=== PATIENT | female | born 1990 | race Caucasian/White ===

== ENCOUNTER 2018-06-07 04:41 | Inpatient (IN) | payer OTHER, MEDICAID ==
[2018-06-07] MEDS ORDERED: Lactated Ringers 1000 ML Bag* 1,000 ML IV ONE ×2 (08:46→14:13)
[2018-06-07] MEDS ORDERED: Buffered Lidocaine 1% SYRIN* 1 ML/SYRINGE INTRADERM ONE (08:46)
[2018-06-07] MEDS ORDERED: Lactated Ringers 1000 ML Bag* 1,000 ML IV SCH ×3 (09:00→20:00)
--- NOTE | 2018-06-07 09:01 | HP ---
General Information - Reason for Visit IUP@40+4 admitted for SROM and early labor - General Information Maternal Age: 28 Grav: 1 Para: 0 SAB: 0 IEA: 0 Estimated Due Date: 06/03/18 Determined By: Early Ultrasound Gestational Age in Weeks/Days: 40+4 Maternal Blood Type and Rh: A Positive - Results this Serology/RPR Result: Non-Reactive Rubella Result: Immune HBsAg Result: Negative HIV Result: Negative GBS Culture Result: Negative Past Medical History Pertinent Past Medical History: Non-Contributory Past Medical History Comment: No current medical problems Pertinent Past Surgical History: None Pertinent Family History: See Records - FH of breast, stomach, and colon CA - Antepartal Records Antepartal Records: Reviewed, Uncomplicated Review of Systems Constitutional: Comfortable CV Complaint: No Respiratory: Shortness of Breath: No Gastrointestinal: No Nausea/Vomiting, Normal Bowel Movement Genitourinary: No Dysuria, No Bleeding Musculoskeletal: No Epigastric Pain, Contractions Neurological: No Headache, No Visual Changes Movement: Normal Exam Allergies/Adverse Reactions: Allergies No Known Allergies Allergy (Verified 06/07/18 05:13) Vital Signs 06/07/18 05:09 Temperature 98.3 F Pulse Rate 103 Respiratory 18 Rate Blood Pressure 115/80 (mmHg) O2 Sat by Pulse 98 Oximetry Lab Values - Entire Visit: Laboratory Tests 06/07/18 08:04 Vag Amniotic Fld Detect Positive - Measurements Height: 5 ft 5.75 in Weight: 182 lb 15.739 oz Weight in lbs: 182.030233 Body Mass Index (BMI): 29.7 Pre- Weight: 149 lb 14.629 oz Weight Gained This : 33.069 lbs and 0.006 ozs - Exam Breast: Breast Exam Deferred CVA: No CVA Tenderness Extremities: No Edema Heart: Normal Rhythm/Heart Sounds HEENT: No Significant Findings Lungs: Clear Bilaterally Rectal: Rectal Exam Deferred Reflexes: DTR 2+ Thyroid: No Thyromegaly - Abdominal Exam Abdomen Exam: Non-Tender, Fundal Height Consistent with Dates - Ultrasound/Biophysical Profile Ultrasound Status: Not Done Targeted Exam Findings See L&D Outpatient Visit Provider Note for Findings: N/A Estimated Weight: 7 Cervical Exam: 2cm - Cervical exam by LON ART Effacement: 50% Station: -2 Presenting Part: Vertex Membrane Status: SROM Amniotic Fluid Evaluation: Clear - C EFM Findings - External Monitor Findings Baseline Heart Rate: 120 External Monitor Findings: Accelerations Present, No Pattern of Variable or Late Decelerations, Variability Moderate, Baseline Stable Contractions: Regular, 45-90 Seconds - q1-5 minutes Assessment/Plan - Assessment IUP@40+4 Early labor SROM, clear fluid VE change from office, now 2/50%/-2 No evidence of acidemia - Plan Plan: Admit - Anticipate Vaginal Delivery - Date/Time of Admission Date of Admission: 06/07/18 Time of Admission: 09:00
--- NOTE | 2018-06-07 11:00 | PTEDU ---
Patient Name: ANDRAE CALVERT ANDRAE CALVERT selected video: BBOB: Bonding Through Massage to view on 06/07/2018 at 11:00:04 AM [facility] [id number]
--- NOTE | 2018-06-07 11:05 | PN ---
Progress Note - Progress Note Date of Service: 06/07/18 Note: SOAP S: Pt reports doing well. On the yoga ball. Feeling contractions every 4 minutes, breathing through contractions. Continues to feel fluid leaking. +FM. Denies needs at this time. O: IA: FHR 130@1000 Contractions: q4 mins, palpate moderate, good resting tone VE: 3.5/70%/-1, vtx, ant; bloody show, pink-tinged fluid A/P: Labor Pt coping well Making appropriate cervical change VE in 2-3 hr or prn Labor support - position changes; partner at bedside and supportive
[2018-06-07 13:31] LABS: ABS Basophils 0.1 10^3/ul (0-0.2); ABS Eosinophils 0 10^3/ul (0-0.6); ABS Lymphocytes 0.6 10^3/ul (1.0-4.8); ABS Monocytes 1.1 10^3/ul (0-0.8); ABS Neutrophils 14.9 10^3/ul (1.5-7.7); ABS Nucleated RBC 0 10^3/ul; Eosinophil % 0.1 %; Hematocrit 37 % (35-47); Hemoglobin 12.1 g/dl (12.0-16.0); Lymphocyte % 3.8 %; Mean Corpuscular HGB Conc 33 g/dl (31-36); Mean Corpuscular Hemoglobin 29 pg (27-31); Mean Corpuscular Volume 87 fL (80-97); Mean Platelet Volume 8.3 fL (7.4-10.4); Nucleated Red Blood Cells % 0; Platelet Count 229 10^3/ul (150-450); Red Blood Count 4.23 10^6/ul (4.00-5.40); Red Cell Distribution Width 15 % (10.5-15); White Blood Count 16.8 10^3/ul (3.5-10.8)
[2018-06-07] MEDS ORDERED: Phenylephrine IV* 40 MCG/ML 10 ML SYRINGE IV PUSH PRN (14:13)
[2018-06-07] MEDS ORDERED: Sodium Citrate/Citric Acid* 15 ML UDC PO PRN (14:13)
[2018-06-07] MEDS ORDERED: Famotidine TAB* 20 MG PO PRN (14:13)
[2018-06-07] MEDS ORDERED: OBEPIDURAL* 250 ML EPIDURAL ONE (14:16)
--- NOTE | 2018-06-07 14:23 | PN ---
Progress Note - Progress Note Date of Service: 06/07/18 Note: SOAP: S: Pt reports increasing pain with contractions. Feeling the need to push with contractions. Requesting cervical exam and epidural. +FM. O: VE: 5/80/-1, blood tinged fluid Contractions: q4-6, palpate strong, good resting tone IA: FHR 130s A/P: Making cervical change Epidural now. Anesthesia aware. at bedside, supportive. Anticipate progression to
[2018-06-07] MEDS ORDERED: OBEPIDURAL* 250 ML EPIDURAL SCH (15:00)
--- NOTE | 2018-06-07 16:45 | PN ---
Progress Note - Progress Note Date of Service: 06/07/18 Note: SOAP: S: Pt resting in left lateral. Feeling pressure with contractions, but no pain. O: BP 105/55, HR 106 FHR: 120, +accels, occasional late deceleration, moderate variability Contraction: q3-4 mins VE: 8.5/100/0, pink-tinged fluid A: Comfortable with epidural Making appropriate cervical change No evidence of metabolic acidemia Plan: VE prn anticipate progression to normal spontaneous vaginal delivery
[2018-06-07] MEDS ORDERED: Oxytocin in LR* 20 UNITS/1,000 ML BAG IVPB ONE (18:47)
[2018-06-07] MEDS ORDERED: Glycerin ADULT SUPP PR PRN (19:39)
[2018-06-07] MEDS ORDERED: Dibucaine 1% 28.35 GM TUBE PR PRN (19:39)
[2018-06-07] MEDS ORDERED: Acetaminophen TAB* 325 MG PO PRN (19:39)
[2018-06-07] MEDS ORDERED: Witch Hazel PAD* JAR TOPICAL PRN (19:39)
--- NOTE | 2018-06-07 19:59 | PROCNOTE ---
[facility]: Delivery Note - Nursery Level of Nursery: Regular/Bedside - Perineum Perineal Injury: 2nd Degree - Significant perineal edema Perineal Repair: Dr. Lucila MD - Events Delivery Events of Note: Pitocin Only After Delivery - Additional Delivery Notes Additional Delivery Notes: Pt admitted following SROM@0730, clear fluid with expected progression to complete. Received CEI per request with excellent relief. Length of labor 16 hours and 46 minutes. Pushed 1 hour and 6 minutes. Perineum with significant edema during pushing. Effective pushing effort led liveborn male. OA to RUSS , shoulders followed with good maternal effort. vigorous with spontaneous cry. HR>110 BPM. Delivered to maternal abdomen. Cord clamped x2 and cut by FOB once pulsations ceased. Spontaneous delivery of intact placenta. Membranes complete. Fundus firm with minimal bleeding noted. Active management of 3rd stage of labor via Pitocin. Careful inspection of the perineum yielded a 2nd degree perineal laceration. Given the considerable edema vs. hematoma, Dr. Gaytan was called for the repair. Anatomy restored and good hemostasis achieved by MD DERICK. Pt tolerated well. EBL 350mL. At time of note, mother and infant in stable condition. Planning to breastfeed.
[2018-06-07] MEDS ORDERED: Oxytocin in LR* 20 UNITS/1,000 ML BAG IVPB SCH (20:00)
[2018-06-07] MEDS ORDERED: Simethicone TAB* 80 MG TAB.CHEW PO SCH (21:00)
[2018-06-07] MEDS: Docusate CAP* 100 MG PO SCH (22:42)
[2018-06-07] MEDS: Ibuprofen TAB* 600 MG PO PRN (22:43)
[2018-06-08] MEDS: Ibuprofen TAB* 600 MG PO PRN ×3 (05:00→20:21)
[2018-06-08 06:58] LABS: ABS Basophils 0 10^3/ul (0-0.2); ABS Eosinophils 0.1 10^3/ul (0-0.6); ABS Lymphocytes 1.2 10^3/ul (1.0-4.8); ABS Monocytes 0.9 10^3/ul (0-0.8); ABS Neutrophils 11.2 10^3/ul (1.5-7.7); ABS Nucleated RBC 0 10^3/ul; Eosinophil % 0.4 %; Hematocrit 22 % (35-47); Hemoglobin 7.4 g/dl (12.0-16.0); Lymphocyte % 8.6 %; Mean Corpuscular HGB Conc 33 g/dl (31-36); Mean Corpuscular Hemoglobin 29 pg (27-31); Mean Corpuscular Volume 88 fL (80-97); Mean Platelet Volume 8.6 fL (7.4-10.4); Nucleated Red Blood Cells % 0; Platelet Count 161 10^3/ul (150-450); Red Blood Count 2.56 10^6/ul (4.00-5.40); Red Cell Distribution Width 15 % (10.5-15); White Blood Count 13.4 10^3/ul (3.5-10.8)
--- NOTE | 2018-06-08 07:31 | PN ---
Progress Note - Progress Note Date of Service: 06/07/18 Note: note Called to see pt shortly after . Placenta already delivered, but difficult laceration encountered. On exam, right perineum and lower introitus extremely swollen (about size of a lemon) and bleeding. Initially thought to be a hematoma, but less likely after further observation and exam. Laceration, carefully inspected and only 2nd degree. Vaginal portion did not extend very high either. 10cc of 1% lidocaine injected. Deeper anatomy restored initially with [id number] stitches of 3-0 Vicryl rapide. Another 3-0 Vicryl rapide used to run the superficial layer. Additional interrupted stitches placed for good closure and hemostasis. Bleeding at that time was minimal. EBL after I presented was probably about 100cc.
[2018-06-08] MEDS: Ferrous Gluconate TAB* 324 MG TAB PO SCH ×2 (08:40→20:21)
[2018-06-08] MEDS: Docusate CAP* 100 MG PO SCH ×3 (08:40→20:21)
--- NOTE | 2018-06-08 16:47 | PTEDU ---
Patient Name: ANDRAE CALVERT ANDRAE CALVERT selected video: BBOB: Bonding Through Massage to view on 06/08/2018 at 4:46:17 [id number]
[2018-06-09] MEDS: Ibuprofen TAB* 600 MG PO PRN ×2 (08:36→18:34)
[2018-06-09] MEDS: Ferrous Gluconate TAB* 324 MG TAB PO SCH ×2 (08:36→21:23)
[2018-06-09] MEDS: Docusate CAP* 100 MG PO SCH ×3 (08:36→21:22)
[2018-06-09 08:40] LABS: Hematocrit 23 % (35-47); Hemoglobin 7.6 g/dl (12.0-16.0)
[2018-06-10] MEDS: Ibuprofen TAB* 600 MG PO PRN ×2 (00:30→06:29)
[2018-06-10 06:31] LABS: Hematocrit 23 % (35-47); Hemoglobin 7.6 g/dl (12.0-16.0)
[2018-06-10] MEDS: Ferrous Gluconate TAB* 324 MG TAB PO SCH (08:22)
[2018-06-10] MEDS: Docusate CAP* 100 MG PO SCH (08:22)
[2018-06-10 10:54] VITALS: BP 113/69
== END 2018-06-10 16:20 | disposition home or self-care (01) | DRG 807 ==
LOC: MCHOBOUT 04:41 → MCHOB 08:40
PROVIDERS: ADMIT Midwife; ATTEND Advanced Practice Midwife
PROC: 10E0XZZ Delivery of Products of Conception, External Approach (ICD-10-PCS; principal; 2018-06-07)
PROC: 0KQM0ZZ Repair Perineum Muscle, Open Approach (ICD-10-PCS; 2018-06-07)
DX: O48.0 Post-term pregnancy (principal); Z37.0 Single live birth; O90.81 Anemia of the puerperium; D64.9 Anemia, unspecified; O70.1 Second degree perineal laceration during delivery; Z3A.40 40 weeks gestation of pregnancy
CPT/HCPCS: 36415; 84112; 85014; 85018; 85025; 86850; 86900; 86901; A9270-GY